=== PATIENT | female | born 1965 | race Caucasian/White ===

== ENCOUNTER 2024-08-01 12:00 | Emergency (ER) | payer OTHER, SELFPAY ==
[2024-08-01 12:12] VITALS: BP 149/85
--- NOTE | 2024-08-01 13:18 | ED.GENMED ---
History of Present Illness
General
Chief Complaint: Skin Problem
Source: patient
Time Seen by Provider: 08/01/24 12:56
History of Present Illness
History of Present Illness:
Note:
CHIEF COMPLAINT(S)
Rash on the face.
HISTORY OF PRESENT ILLNESS
The patient is a 59-year-old female presenting with a diffuse rash on her face, attributed to poison liss exposure. The rash is characterized by severe pruritus and has been spreading over the forehead/face and anterior chest/breast area. The patient
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 She inquired about the use of topical steroids but was advised to avoid their use on the face due to potential skin discoloration,
especially with sun exposure. The onset of the rash was recent, following an outdoor walk through a wooded area. The patient denies any history or suspicion of shingles, as the rash crosses the midline and lacks typical shingles presentation. She
expressed significant concern about the severity and spread of the rash.
Past History
Past History
ED Past Medical History: None
ED Past Surgical History: Urological
Social History
Tobacco: Non-smoker
Alcohol: Occasional
Drug: None
Personal:
Living: with family
Review of Systems
Review of Systems
All Other Systems: ROS reviewed and negative except as documented in HPI and ROS
Phy Exam
Physical Exam
Physical Exam:
GENERAL: Alert , in no apparent distress
EYE: conjunctiva clear
Head: Normocephalic atraumatic
NECK: Supple,
ENT: mmm.
LUNGS: no acute respiratory distress
NEUROLOGICAL: Alert and oriented
SKIN: Warm and dry, erythematous rash with vesicular eruption on the forehead and right side of the face/cheek, anterior chest and just superior to the left breast
MUSCULOSKELETAL: well perfused.
PSYCH: Normal and appropriate interaction.
Scores
Heart Failure Risk
Heart Failure Risk Score: Not Applicable
Heart Score for Chest Pain Patients
STEMI patient?: Not applicable
Withdrawal Assessment of Alcohol
Withdrawal Assessment Completed?: Not applicable
Course
Orders/Labs/Results
Orders:
Orders
08/01/24 13:18
Prednisone [Deltasone] 60 mg PO NOW STA
Vital Signs
Initial and Last Documented VS:
Initial Vital Signs
Temp Pulse Resp BP Pulse Ox
98.3 F 86 18 149/85 100
08/01/24 12:12 08/01/24 12:12 08/01/24 12:12 08/01/24 12:12 08/01/24 12:12
Last Documented Vital Signs
Temp Pulse Resp BP Pulse Ox
98.3 F 86 18 149/85 100
08/01/24 12:12 08/01/24 12:12 08/01/24 12:12 08/01/24 12:12 08/01/24 13:19
MDM/Problems Addressed
Differential Diagnosis Includes:
The Differential Diagnosis includes, in no particular order and is not limited to:
1. Contact dermatitis
2. Allergic dermatitis
3. Atopic dermatitis
4. Seborrheic dermatitis
5. Photodermatitis
6. Bacterial skin infection
7. Viral exanthem
8. Shingles (herpes zoster)
9. Rosacea
10. Psoriasis
MDM/Problems Addressed:
Initiate treatment with oral steroids to manage the severe allergic reaction. Provide first dose in the ER, and send prescription for a two-week taper to the pharmacy. Discuss alternative topical agents (e.g., Benadryl, cool compresses) for
symptomatic relief. Caution provided against using topical steroids on the face and advised on methods to prevent further spread of urushiol oil. I did offer the patient intramuscular steroid as she had noted previous relief with this but I did
inform her that one-time dose would likely be insufficient treatment and she would still need oral steroids, patient was amenable to treatment with just oral steroids at this time. I do not suspect shingles as a likely diagnosis given the rash is
occurring on both sides of the body.
*Pulse Oximetry
SaO2: 100
Oxygen Mode of Delivery: Room air
Patient hypoxic: no
*Critical Care Note
Total Time (30-74mins, 75-104mins- exclusive of procedures): Not Applicable
ED Attending Note
-
Portions of this chart may have been created with voice recognition software.� Occasional wrong word or��sound alike� substitutions may have occurred due to the inherent limitations of voice recognition software.
Discharge Plan
Departure
Patient Disposition: Home (Routine Discharge)
Date of Disposition: 08/01/24
Time of Disposition: 13:19
Patient with high blood pressure during this ER visit?: Yes
Discharge Problem:
Poison liss dermatitis
Instructions: Poison Liss, Poison [place], Poison [place] [facility]
Prescriptions:
New
prednisone 10 mg Tablet
See Rx Instructions .ROUTE .COMPLEX Qty: 45 0RF
Rx Instructions:
Take By Mouth:
50 mg daily x3 days, 40 mg daily x3 days,
30 mg daily x3 days, 20 mg daily x3 days,
10 mg daily x3 days
Referrals:
UNKNOWN - PT DOES,NOT KNOW [Family Provider]
Interventions
Interventions:
*Risk Screen - Suicide Last Done: 08/01/24 12:12
*General Assessment Last Done: 08/01/24 12:12
*Neglect/Abuse Screening Last Done: 08/01/24 12:12
*Nursing Disposition Last Done: 08/01/24 13:34
ED-Skin Assessment Last Done: 08/01/24 13:34
Discharge Date and Time
Discharge Date/Time: 08/01/24 13:35
Print Language: BULGARIAN
[2024-08-01] MEDS: DELTASONE 60 MG PO (13:31)
== END 2024-08-01 13:35 | disposition home or self-care (01) ==
LOC: EMR 12:00
PROVIDERS: EMERGENCY PHYSICIAN Emergency Medicine
DX: L23.7 Allergic contact dermatitis due to plants, except food (principal)
CPT/HCPCS: 99283